=== PATIENT | female | born 1950 | race Caucasian/White ===

== ENCOUNTER 2016-03-12 11:22 | Emergency (ER) | payer OTHER, MEDICARE ==
[2016-03-12] MEDS ORDERED: ASPIRIN 81 MG CHEWABLE TAB PO ONE (12:05)
[2016-03-12] MEDS ORDERED: IPRATROPIUM/ALBUTEROL 3 ML DEYVIAL IH ONE (12:05)
[2016-03-12] MEDS ORDERED: NS 500 ML IV ONE (12:05)
--- NOTE | 2016-03-12 12:13 | EDPHY ---
H & P Stated Complaint: SHORT OF BREATH, TIGHTNESS IN LEFT ARM Time Seen by Provider: 03/12/16 11:38 HPI/ROS: CHIEF COMPLAINT: Shortness of breath, tightness in left arm HISTORY OF PRESENT ILLNESS: 65-year-old female presents to the emergency department reporting that for the last 4 days she has been somewhat short of breath. She describes it feels like she is unable to take a full breath. Patient believes this may be related to a new cholesterol medication that she started about 2 weeks ago. However, when she stops a cholesterol medication shortness of breath did not go away. She denies any chest pain. She does feel some tingling across the anterior chest. Last night she noticed tightness in her left arm. She describes arms feeling like it is swollen. She has no history of hypertension, coronary artery disease, diabetes. She is a nonsmoker. No history of COPD or asthma. No thromboembolic disease history. She does report that every time she takes some type of cholesterol medication she seems to have a side effect including muscle aches. Denies fevers or chills, cough, URI symptoms, vomiting, diarrhea, generalized weakness. REVIEW OF SYSTEMS: Aside from elements discussed in the HPI, a comprehensive 10-point review of systems was reviewed and is negative. PAST MEDICAL HISTORY: Hypercholesterolemia. SOCIAL HISTORY: Nonsmoker. VITAL SIGNS Reviewed by me. GENERAL: Well-developed, well-nourished, resting comfortably in no respiratory distress. HEENT: Atraumatic. Eyes: No icterus, no injection. Mouth: moist mucous membranes. No erythema or lesions. Neck: supple with no adenopathy. LUNGS: Clear to auscultation bilaterally, no wheezes, rhonchi or rales. CARDIAC: Regular rate and rhythm, no rubs, murmurs or gallops. ABDOMEN: Soft, nontender, nondistended, bowel sounds normal. BACK: No CVA tenderness. EXTREMITIES: No trauma. No edema. Range of motion is normal throughout. No tenderness to palpation or fullness in the left upper extremity. Distal neurovascularly intact. NEURO: Alert and oriented, grossly nonfocal. SKIN: Warm and dry, no rash. PSYCHIATRIC: Normal mentation, no agitation. - Personal History Current Tetanus/Diphtheria Vaccine: No - Medical/Surgical History Hx Asthma: No Hx Chronic Respiratory Disease: No Hx Diabetes: No Hx Cardiac Disease: No Hx Renal Disease: No Hx Cirrhosis: No Hx Alcoholism: No Hx HIV/AIDS: No Hx Splenectomy or Spleen Trauma: No Other PMH: PMH: high cholesterol. PSH: denies - Social History Smoking Status: Never smoked Constitutional: Initial Vital Signs Temperature (C) 36.9 C 03/12/16 11:33 Heart Rate 78 03/12/16 11:33 Respiratory Rate 16 03/12/16 11:33 Blood Pressure 128/77 H 03/12/16 11:33 O2 Sat (%) 96 03/12/16 11:33 O2 Delivery Mode Room Air Allergies/Adverse Reactions: No Known Allergies Allergy (Unverified 03/12/16 11:35) Home Medications: Medication Instructions Recorded Albuterol Hfa Anes Only [Proair 2 puffs IH QID PRN #1 mdi 03/12/16 Hfa Icu (*)] Medical Decision Making - Diagnostics EKG Interpretation: 12-LEAD EKG: Please see the full report in [facility]. My interpretation: Sinus rhythm Imaging: X-ray: Chest x-ray was obtained. I viewed the images myself on the PACS system. My interpretation of the images is: No acute infiltrate. The radiologist interpretation is pending at this time. I discussed the x-ray findings with the patient. Results: An ultrasound scan of the left upper extremity was obtained. The results of the study were reported to me: No deep venous thrombus. The study was read by Dr. Dooley. I viewed the images myself on the PACS system. I discussed the results of the study with the patient. ED Course/Re-evaluation: 65-year-old female with shortness of breath the last 4 days. She developed tightness in her left arm last night. The evaluation emergency department included an EKG with normal sinus rhythm, troponin which was negative, chest x-ray with no acute findings, a negative D- dimer. Patient did receive nitroglycerin, as well as a albuterol treatment. She reports little change in her symptoms. Course was discussed with the cardiology service. Patient will undergo a graded stress test at 4pm. Provided that is normal, patient will be discharged to follow up with the primary care physician. Differential Diagnosis: Differential diagnosis for the patient's symptom complex was considered including but not limited to pulmonary infectious processes, COPD exacerbation, pulmonary emboli, pulmonary edema, congestive heart failure, and cardiac causes. - Data Points Laboratory Results: Laboratory Results 03/12/16 12:10 03/12/16 12:10 03/12/16 12:10 WBC 7.77 10^3/uL (3.80-9.50) RBC 5.16 10^6/uL (4.18-5.33) Hgb 14.5 g/dL (12.6-16.3) Hct 43.4 % (38.0-47.0) MCV 84.1 fL (81.5-99.8) MCH 28.1 pg (27.9-34.1) MCHC 33.4 g/dL (32.4-36.7) RDW 13.2 % (11.5-15.2) Plt Count 221 10^3/uL (150-400) MPV 11.2 fL (8.7-11.7) Neut % (Auto) 59.5 % (39.3-74.2) Lymph % (Auto) 30.6 % (15.0-45.0) [place] % (Auto) 8.4 % (4.5-13.0) Eos % (Auto) 0.6 % (0.6-7.6) Baso % (Auto) 0.5 % (0.3-1.7) Nucleat RBC Rel Count 0.0 % (0.0-0.2) Absolute Neuts (auto) 4.62 10^3/uL (1.70-6.50) Absolute Lymphs (auto) 2.38 10^3/uL (1.00-3.00) Absolute Monos (auto) 0.65 10^3/uL (0.30-0.80) Absolute Eos (auto) 0.05 10^3/uL (0.03-0.40) Absolute Basos (auto) 0.04 10^3/uL (0.02-0.10) Absolute Nucleated RBC 0.00 10^3/uL (0-0.01) Immature Gran % 0.4 % (0.0-1.1) Immature Gran # 0.03 10^3/uL (0.00-0.10) D-Dimer 0.31 ug/mLFEU (0.00-0.50) Sodium 139 mEq/L (134-144) Potassium 4.1 mEq/L (3.5-5.2) Chloride 104 mEq/L (97-110) Carbon Dioxide 23 mEq/l (22-31) Anion Gap 12 mEq/L (8-16) BUN 15 mg/dL (7-23) Creatinine 0.7 mg/dL (0.6-1.0) Estimated GFR > 60 Glucose 131 H mg/dL (70-100) Calcium 10.1 mg/dL (8.5-10.4) Troponin I 0.014 ng/mL (0-0.034) NT-Pro-B Natriuret Pep 52 pg/mL (0-125) Medications Given: Discontinued Medications Albuterol (Proventil Neb) 3 ml IH EDNOW ONE Stop: 03/12/16 13:28 Last Admin: 03/12/16 13:50 Dose: 3 ml Aspirin (Aspirin) 324 mg PO EDNOW ONE Stop: 03/12/16 12:06 Last Admin: 03/12/16 12:35 Dose: 324 mg Sodium Chloride (Ns) 500 mls @ 0 mls/hr IV ONCE ONE PRN Reason: As Directed Stop: 03/12/16 12:06 Last Admin: 03/12/16 12:56 Dose: 500 mls Departure - Departure Disposition: Home, Routine, Self-Care Clinical Impression: Shortness of breath, Arm discomfort Condition: Good Instructions: Dyspnea (ED) Additional Instructions: Consider using meter dose inhaler to see if this will help with your shortness of breath. Please follow up with Dr. Werner regarding your symptoms an your cholesterol medication. Okay to take Tylenol or ibuprofen as needed for arm discomfort. Please return to the emergency department or seek care urgently if you have worsening symptoms including worsening shortness of breath, worsening chest pain , numbness or tingling into the jaw or arms, lightheadedness, dizziness, or other concerns. Referrals: Rina Werner MD [Primary Care Provider] - As per Instructions Prescriptions: Albuterol Hfa Anes Only [Proair Hfa Icu (*)] 2 puffs IH QID PRN #1 mdi PRN Reason: shortness of breath
[2016-03-12 12:24] LABS: % IMMATURE GRANULYOCYTES 0.4 % (0.0-1.1); ABSOLUTE IMMATURE GRANULOCYTES 0.03 10^3/uL (0.00-0.10); ADD DIFF? NO; ADD MORPH? NO; ADD SCAN? NO; ATYPICAL LYMPHOCYTE FLAG 10 (0-99); FRAGMENT RBC FLAG 0 (0-99); HEMATOCRIT 43.4 % (38.0-47.0); HEMOGLOBIN 14.5 g/dL (12.6-16.3); LEFT SHIFT FLG 0 (0-99); LIPEMIA HEMOLYSIS FLAG 80 (0-99); MEAN CELL HEMOGLOBIN 28.1 pg (27.9-34.1); MEAN CELL HEMOGLOBIN CONCENTR. 33.4 g/dL (32.4-36.7); MEAN CELL VOLUME 84.1 fL (81.5-99.8); MEAN PLATELET VOLUME 11.2 fL (8.7-11.7); PLATELET CLUMPS FLAG 0 (0-99); PLATELET COUNT 221 10^3/uL (150-400); RED BLOOD CELL COUNT 5.16 10^6/uL (4.18-5.33); RED CELL DISTRIBUTION WIDTH 13.2 % (11.5-15.2)
--- NOTE | 2016-03-12 12:24 | CPEKG ---
Heart Rate: 65 RR Interval: 923 P-R Interval: 184 QRSD Interval: 86 QT Interval: 424 QTC Interval: 441 P [place]: 69 QRS [place]: 43 T Wave [place]: 50 EKG Severity - NORMAL ECG - EKG Impression: SINUS RHYTHM Electronically Signed By: Lux Garzon 12-Mar-2016 13:33:18
[2016-03-12 12:41] LABS: ANION GAP 12 mEq/L (8-16); CALCIUM 10.1 mg/dL (8.5-10.4); CARBON DIOXIDE 23 mEq/l (22-31); CHLORIDE 104 mEq/L (97-110); CREATININE 0.7 mg/dL (0.6-1.0); GLOMERULAR FILTRATION RATE > 60; GLUCOSE 131 mg/dL (70-100); POTASSIUM 4.1 mEq/L (3.5-5.2); SODIUM 139 mEq/L (134-144)
[2016-03-12 12:53] LABS: TROPONIN I 0.014 ng/mL (0-0.034)
[2016-03-12] MEDS ORDERED: NITROGLYCERIN 0.4 MG BTL SL ONE (12:55)
--- NOTE | 2016-03-12 12:58 | DX ---
PA and Lateral Chest History: Chest pain in a 65-year-old female; comparison prior study June 28, 2007. Findings: The heart and mediastinum are normal. Pulmonary vascularity is normal. The lungs are clear. Mild peribronchial thickening is noted. Possible hyperexpansion is noted with flattening of the martina diaphragms. There is no pleural fluid. A pneumothorax is not identified. There is been no significant change from the prior study. Impression: Query airways disease.
[2016-03-12] MEDS ORDERED: ALBUTEROL 3 ML DEYVIAL IH ONE (13:27)
--- NOTE | 2016-03-12 14:42 | US ---
Left Upper Extremity Ultrasound with Duplex Doppler History: Pain. Comparison: None available. Technique: The veins of the left neck and upper extremity are assessed with grayscale and Doppler ult rasound with compression of accessible vein segments. Findings: The left internal jugular, subclavian, axillary, cephalic, basilic, and paired brachial vei ns are patent, with normal color Doppler appearance and waveforms. Accessible vein segments are compr essible. Impression: No evidence of DVT. Findings discussed with Nadia Cummings 03/12/2016 at 14:38 hours.
[2016-03-12 15:47] VITALS: O2SAT 96
[2016-03-12 16:37] VITALS: BP 130/87; PULSE 88; RESP 20; TEMP 97.7
--- NOTE | 2016-03-12 21:17 | CPIP ---
[f rep st] INVASIVE CARDIAC PROCEDURE DATE OF PROCEDURE: 03/12/2016 PROCEDURE: Stress test. INDICATIONS: Chest pain. COMPLICATIONS: None. DESCRIPTION OF PROCEDURE: After informed consent, patient was established to the monitoring specialist. S he was exercised according to standard Dru protocol. Continuous telemetry and continuous oxygen mo nitoring was performed with blood pressure monitoring every stage. FINDINGS: The patient exercised for 8 minutes on a Dru protocol, stopping for fatigue. She had no angina or increase in her baseline left arm discomfort which has been present for 24 hours prior to the test. Resting heart rate was 96 beats per minute. Peak heart rate was 153 beats per minute which represent s 90% of age-predicted maximum heart rate. Resting blood pressure 110/60, peak blood pressure 154/70 . Double product 23,254. Resting EKG shows sinus rhythm. With stress, there were no ischemic ST changes, rare PVCs. The teo ent had normal heart rate recovery response to exercise and a normal hemodynamic response to exercise . CONCLUSION: Normal stress test at excellent workload. Return to the ER for discharge. /[id number]/MODL
== END 2016-03-12 16:37 | disposition home or self-care (01) ==
DX: R06.02 Shortness of breath (principal); M79.602 Pain in left arm

== ENCOUNTER → 2016-12-10 | Outpatient (CLI) | payer MEDICARE, OTHER | LOC: FIMAGING 08:47 | PROVIDERS: ATTEND Family Medicine | DX: Z13.820 Encounter for screening for osteoporosis (principal); M81.0 Age-related osteoporosis without current pathological fracture ==

== ENCOUNTER → 2016-12-21 | Outpatient (CLI) | payer OTHER | LOC: FIMAGING 13:02 | PROVIDERS: ATTEND Family Medicine | DX: Z12.31 Encounter for screening mammogram for malignant neoplasm of breast (principal); Z80.3 Family history of malignant neoplasm of breast | CPT/HCPCS: G0202 ==

== ENCOUNTER → 2018-03-15 | Outpatient (CLI) | payer OTHER | LOC: FIMAGING 12:17 | PROVIDERS: ATTEND Family Medicine | DX: Z12.31 Encounter for screening mammogram for malignant neoplasm of breast (principal); Z80.3 Family history of malignant neoplasm of breast ==